=== PATIENT | male | born 1945 | race Caucasian/White ===

== ENCOUNTER → 2016-09-10 | Outpatient (REF) | payer MEDICARE | LOC: M SFHCCLAY 07:23 | PROVIDERS: ATTEND Nurse Practitioner Family | DX: E78.4 Other hyperlipidemia (principal) ==

== ENCOUNTER → 2017-05-28 | Outpatient (REF) | payer MEDICARE ==
[2017-05-28 11:24] LABS: BASO % 0.3 % (0.0-1.0); EOS # 0.2 10^3/uL (0.0-0.50); EOS % 2.8 % (0.0-3.0); HEMATOCRIT 41.7 % (42.0-52.0); HEMOGLOBIN 14.4 g/dl (14.0-18.0); IMMATURE GRANULOCYTE % 0.5 % (0-3.0); LYMPH # 1.6 10^3/uL (1.5-4.5); LYMPH % 25.7 % (24.0-44.0); MEAN CORPUSCULAR HGB CONC 34.5 g/dl (32.0-36.5); MEAN CORPUSCULAR VOLUME 89.9 fl (80.0-96.0); MONO # 0.5 10^3/uL (0.0-0.8); NEUTROPHILS # 3.8 10^3/uL (1.8-7.7); NEUTROPHILS % 62.7 % (36.0-66.0); PLATELET COUNT, AUTOMATED 202 10^3/uL (150-450); RED BLOOD COUNT 4.64 10^6/uL (4.30-6.10); RED CELL DISTRIBUTION WIDTH 12.6 % (11.5-14.5); WHITE BLOOD COUNT 6.1 10^3/uL (4.0-10.0)
[2017-05-28 11:47] LABS: CHOLESTEROL LEVEL 180 MG/DL (<200); HDL CHOLESTEROL 41 MG/DL (>40); LDL CHOLESTEROL 111.2 MG/DL (<100); NON-HDL-C 139 MG/DL; PSA SCREENING 1.36 NG/ML (< 4.0); TRIGLYCERIDES LEVEL 139 MG/DL (<150)
[2017-05-28 11:48] LABS: TOTAL 25(OH) VITAMIN D 71.4 NG/ML (30.0-100.0)
== END ==
LOC: M SFHCCAPE 08:14
DX: M81.0 Age-related osteoporosis without current pathological fracture (principal); I10 Essential (primary) hypertension; E78.4 Other hyperlipidemia; Z12.5 Encounter for screening for malignant neoplasm of prostate
CPT/HCPCS: 82306

== ENCOUNTER → 2017-08-15 | Outpatient (CLI) | payer MEDICARE | LOC: M CLY 09:20 | DX: M19.071 Primary osteoarthritis, right ankle and foot (principal); M79.671 Pain in right foot | CPT/HCPCS: 73630 ==

== ENCOUNTER 2018-10-08 05:50 | Day surgery (SDC) | payer MEDICARE ==
[~2018-10-08] VITALS: Ht 185.4 cm; Wt 65.8 kg
[~2018-10-08 05:50] MED LIST: CBD OIL PO; COQ1200C3 PO; IMMUCAP2 PO; TUMETAB PO; VITA500T40 PO; [UNRECOGNIZED DRUG - CODE] PO
[2018-10-08] MEDS ORDERED: LIDOCAINE 1% MDV 20ML VIAL SQ PRN (06:00)
[2018-10-08] MEDS ORDERED: ceFAZolin SOD 1 GM in D5W MINI-BAG PLUS 50 ML IV ONE (07:00)
[2018-10-08] MEDS ORDERED: LR 1,000 ML IV ONE (07:00)
[2018-10-08] MEDS ORDERED: BUPIVACAINE/EPIN 0.25% 30 ML VIAL As Ordered ONE (07:10)
[2018-10-08] MEDS ORDERED: MIDAZOLAM INJ 2 MG/2 ML VIAL (J2250) As Ordered ONE (07:18)
[2018-10-08] MEDS ORDERED: fentaNYL 100 MCG/2 ML INJECTION (J3010) As Ordered ONE ×2 (07:19→08:45)
[2018-10-08] MEDS ORDERED: GLYCOPYRROLATE INJ 0.2 MG/ML 2 ML VIAL As Ordered ONE (08:11)
[2018-10-08] MEDS ORDERED: dexameTHASONE 4 MG/ML 1ML VIAL (J1100) As Ordered ONE (08:21)
[2018-10-08] MEDS ORDERED: ROCURONIUM BROMIDE 50 MG/5 ML VIAL As Ordered ONE ×2 (08:32→08:45)
[2018-10-08] MEDS ORDERED: PROPOFOL 200 MG/20 ML VIAL As Ordered ONE (08:32)
[2018-10-08] MEDS ORDERED: LIDOCAINE 2% INJ 100 MG/5 ML SDV (FOR ANES.) As Ordered ONE (08:32)
[2018-10-08] MEDS ORDERED: ONDANSETRON 4MG/2ML VIAL (J2405) As Ordered ONE (08:34)
[2018-10-08] MEDS ORDERED: SUGAMMADEX SODIUM 500 MG/5 ML VIAL (BRIDION) As Ordered ONE (09:01)
[2018-10-08] MEDS ORDERED: KETOROLAC 60 MG/2 ML VIAL (J1885) As Ordered ONE (09:11)
--- NOTE | 2018-10-08 09:28 | RO ---
DATE OF PROCEDURE: 10/08/2018 PREOPERATIVE DIAGNOSIS: Right inguinal hernia. POSTOPERATIVE DIAGNOSIS: Right inguinal hernia. PROCEDURE: Robotic-assisted right inguinal hernia repair with ProGrip mesh. SURGEON: Dr. Bartolo Sinclair MULLING MACHINE OPERATOR: Kathi Schaffer NP, who provided retraction, instrument exchange, trocar placement and abdominal wall closure. ESTIMATED BLOOD LOSS: 25 mL. ANESTHESIA: General endotracheal anesthesia DISPOSITION: The patient was taken to recovery room awake, alert and hemodynamic stable. OPERATIVE SUMMARY: The patient was brought to the operating room and was given general anesthesia. After adequate anesthesia and preoperative antibiotics were given, the patient was prepped and draped in the usual sterile fashion. Next a supraumbilical incision was made with skin knife. Blunt dissection was carried down to fascia. Veress needle was placed into the abdominal cavity and insufflated to 15 mm of pressure and a dilating 8 mm trocar was placed at this time under direct visualization. Two 8 mm trocars were placed and the camera was docked with the patient in the Trendelenburg position. Next the peritoneum was taken down with monopolar cut scissors and blunt dissection as well as electrocautery was used to dissect off this peritoneal layer. Eventually the hernia sac was delivered out of the indirect area. Dissection was carried off Ramirez's ligament and after adequate mobilization of peritoneum there was still a significant amount of adherent material just medial to the epigastrics going into the vessels in this area. It did not appear to be part of the bladder itself, but definitely some thickened and inflammatory changes associated with his symptomatic hernia. In any case, these were taken down with the monopolar cut scissors as well. There was some minimal oozing in this area which was controlled nicely with the bipolar. Once this was nicely mobilized in this area, the ProGrip mesh was placed in the preperitoneal space and some Sophy was placed on the medial aspect on the bladder wall in this area, although it was clean, dry with no active bleeding and all the Sophy was nice and white on application prior to closure of the peritoneum with a V-Loc suture. The camera was undocked at this time. All trocars were removed and 4-0 Vicryl was used to close all incisions. Steri-Strips and a dry sterile dressing was applied. The patient was then awakened, extubated and brought to recovery room awake, alert and hemodynamically stable. Sponge and needle counts correct times two.
[2018-10-08] MEDS ORDERED: PERCOCET 5MG/325MG TAB PO PRN (09:45)
[2018-10-08] MEDS ORDERED: fentaNYL 100 MCG/2 ML INJECTION (J3010) IV PRN (09:45)
[2018-10-08] MEDS ORDERED: LR 1,000 ML IV SCH ×2 (09:45→10:46)
[2018-10-08] MEDS ORDERED: ONDANSETRON 4MG/2ML VIAL (J2405) IV PRN ×2 (09:45→10:46)
[2018-10-08] MEDS ORDERED: ETOMIDATE INJ 20MG/10ML VIAL As Ordered ONE (09:56)
[2018-10-08] MEDS ORDERED: NORCO, ANEXSIA 5/325MG TABLET (HYDROcodone/ACETAMINOPHEN) PO PRN (10:46)
[2018-10-08 11:50] VITALS: BP 135/70
--- NOTE | 2018-10-09 08:31 | ECGEPIP ---
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
== END 2018-10-08 12:05 | disposition home or self-care (01) ==
LOC: M SDC 05:50
PROVIDERS: ATTEND Surgery
DX: K40.90 Unilateral inguinal hernia, without obstruction or gangrene, not specified as recurrent (principal); N40.0 Benign prostatic hyperplasia without lower urinary tract symptoms; Z79.899 Other long term (current) drug therapy
CPT/HCPCS: 49650; 93005; C1781; J0690; J1100; J1885; J2250; J2405; J3010

== ENCOUNTER → 2018-10-24 | Outpatient (REF) | payer MEDICARE ==
[2018-10-24 11:55] LABS: HEMATOCRIT 42.9 % (42.0-52.0); HEMOGLOBIN 14.6 g/dl (13.5-17.5); MEAN CORPUSCULAR HEMOGLOBIN 31.9 pg (27.0-33.0); MEAN CORPUSCULAR VOLUME 93.9 fl (80.0-96.0); PLATELET COUNT, AUTOMATED 214 10^3/uL (150-450); RED BLOOD COUNT 4.57 10^6/uL (4.30-6.10); WHITE BLOOD COUNT 7.3 10^3/uL (4.0-10.0)
[2018-10-24 12:00] LABS: ALBUMIN 3.8 GM/DL (3.2-5.2); ALT/SGPT 29 U/L (12-78); BILIRUBIN,TOTAL 0.4 MG/DL (0.2-1.0); BLOOD UREA NITROGEN 17 MG/DL (7-18); CALCIUM LEVEL 8.7 MG/DL (8.8-10.2); CARBON DIOXIDE LEVEL 32 MEQ/L (21-32); CHLORIDE LEVEL 106 MEQ/L (98-107); CHOLESTEROL LEVEL 199 MG/DL (<200); CHOLESTEROL RISK RATIO 4.234 (<5); CREATININE FOR GFR 0.98 MG/DL (0.70-1.30); GLOMERULAR FILTRATION RATE > 60.0 (>42); GLUCOSE, FASTING 114 MG/DL (70-100); HDL CHOLESTEROL 47 MG/DL (>40); LDL CHOLESTEROL 132 MG/DL (<100); NON-HDL-C 152 MG/DL; POTASSIUM SERUM 4.3 MEQ/L (3.5-5.1); SODIUM LEVEL 142 MEQ/L (136-145); TRIGLYCERIDES LEVEL 100 MG/DL (<150)
[2018-10-24 12:07] LABS: TOTAL 25(OH) VITAMIN D 44.5 NG/ML (30.0-100.0)
== END ==
LOC: M SFHCCLAY 08:18
PROVIDERS: ATTEND Nurse Practitioner Family
DX: I10 Essential (primary) hypertension (principal); E78.49 Other hyperlipidemia; M81.0 Age-related osteoporosis without current pathological fracture

== ENCOUNTER → 2019-08-05 | Outpatient (REF) | payer MEDICARE ==
[2019-08-05 12:22] LABS: CHOLESTEROL RISK RATIO 3.928 (<5)
== END ==
LOC: M SFHCCLAY 08:26
PROVIDERS: ATTEND Nurse Practitioner Family
DX: E78.5 Hyperlipidemia, unspecified (principal); Z12.5 Encounter for screening for malignant neoplasm of prostate
CPT/HCPCS: 80061; G0103

== ENCOUNTER → 2019-11-10 | Outpatient (CLI) | payer MEDICARE ==
--- NOTE | 2019-12-01 11:49 | REP ---
LEFT FOOT SERIES CLINICAL: Pain with recent trauma. TECHNIQUE: AP, lateral, bilateral oblique views of the left foot. FINDINGS: Age-related degenerative changes are appreciated primarily involving the first metatarsophalangeal joint with hallux valgus deformity and mild spurring with joint space narrowing. No acute fracture or dislocation. Vascular calcifications are identified. Lateral view demonstrates moderate calcaneal heel spur. IMPRESSION: Age-related changes. No acute fracture or dislocation. [facility]
--- NOTE | 2019-12-01 11:50 | REP ---
LEFT ANKLE SERIES CLINICAL: Left ankle pain with recent trauma. TECHNIQUE: AP, lateral, bilateral oblique views of the left ankle. FINDINGS: Mild swelling over the lateral malleolus. No acute fracture or dislocation. Joint spaces and ankle mortise are intact. Peripheral vascular disease noted. IMPRESSION: Mild swelling. No acute fracture or dislocation. [facility]
== END ==
LOC: M WUC 11:50
PROVIDERS: ATTEND Nurse Practitioner Family
DX: M25.572 Pain in left ankle and joints of left foot (principal)

== ENCOUNTER → 2022-03-14 | Outpatient (CLI) | payer MEDICARE | LOC: M SOG 13:01 | PROVIDERS: ATTEND Orthopaedic Surgery | DX: M00.832 Arthritis due to other bacteria, left wrist (principal); S52.509A Unspecified fracture of the lower end of unspecified radius, initial encounter for closed fracture; X58.XXXA Exposure to other specified factors, initial encounter; Y92.9 Unspecified place or not applicable; Y93.9 Activity, unspecified; Y99.9 Unspecified external cause status ==

== ENCOUNTER → 2022-03-14 | Outpatient (CLI) | payer MEDICARE | LOC: M WUC 10:40 | PROVIDERS: ATTEND Internal Medicine | DX: M79.89 Other specified soft tissue disorders (principal); M25.532 Pain in left wrist; M79.642 Pain in left hand; S52.572A Other intraarticular fracture of lower end of left radius, initial encounter for closed fracture; W19.XXXA Unspecified fall, initial encounter; Y92.9 Unspecified place or not applicable; Y93.9 Activity, unspecified; Y99.9 Unspecified external cause status ==

== ENCOUNTER → 2022-04-17 | Outpatient (CLI) | payer MEDICARE | LOC: M SOG 07:54 | PROVIDERS: ATTEND Orthopaedic Surgery Hand Surgery | DX: S52.502D Unspecified fracture of the lower end of left radius, subsequent encounter for closed fracture with routine healing (principal) ==

== ENCOUNTER → 2022-05-15 | Outpatient (CLI) | payer MEDICARE | LOC: M SOG 09:03 | PROVIDERS: ATTEND Orthopaedic Surgery Hand Surgery | DX: M25.532 Pain in left wrist (principal); S52.502D Unspecified fracture of the lower end of left radius, subsequent encounter for closed fracture with routine healing; M19.032 Primary osteoarthritis, left wrist ==

== ENCOUNTER → 2022-06-14 | Outpatient (CLI) | payer MEDICARE | LOC: M SOG 08:35 | PROVIDERS: ATTEND Physician Assistant | DX: S52.502A Unspecified fracture of the lower end of left radius, initial encounter for closed fracture (principal); Z53.9 Procedure and treatment not carried out, unspecified reason ==

== ENCOUNTER → 2023-01-28 | Outpatient (CLI) | payer MEDICARE | LOC: M WHC 08:25 | PROVIDERS: ATTEND Internal Medicine | DX: M85.89 Other specified disorders of bone density and structure, multiple sites (principal) ==